=== PATIENT | female | born 1980 | race African-American/Black ===

== ENCOUNTER 2020-01-15 17:51 | Emergency (ER) | payer BC ==
[~2020-01-15] VITALS: Ht 165.1 cm; Wt 150.0 kg
[2020-01-15 21:49] LABS: BASOPHILS % 0.6 % (0.0-2.0); EOSINOPHILS % 1.3 % (0.0-5.0); HEMATOCRIT. 25.2 % (36.0-48.0); HEMOGLOBIN. 7.8 g/dL (12.0-16.0); LYMPHOCYTES % 25.2 % (20.0-50.0); MEAN CORPUSCULAR HEMOGLOBIN 21.4 pg (28.0-32.0); MEAN CORPUSCULAR VOLUME 69.5 fL (81.0-99.0); MEAN PLATELET VOLUME 5.9 fl (7.4-10.4); MONOCYTES % 6.3 % (2.0-8.0); NEUTROPHILS % 66.6 % (40.0-76.0); PLATELET 537 x1000/uL (130-400); RED BLOOD CELL COUNT 3.62 mill/uL (4.2-5.4); RED CELL DISTRIBUTION WIDTH 32.8 % (11.6-14.6)
[2020-01-15 21:55] LABS: CHLORIDE 106 mEq/L (98-107)
[2020-01-15 22:04] VITALS: BP 165/76
[2020-01-15 22:30] LABS: PLATELET ESTIMATE MARKEDLY INCREASED
== END 2020-01-15 22:40 | disposition home or self-care (01) ==
LOC: ER 18:03
DX: R55 Syncope and collapse (principal); D64.9 Anemia, unspecified; J45.909 Unspecified asthma, uncomplicated; Z98.890 Other specified postprocedural states
CPT/HCPCS: 36415; 71045; 80053; 83735; 83880; 84484; 85025; 93005; 99285